=== PATIENT | male | born 2000 ===

== ENCOUNTER 2018-03-10 14:49 | Emergency (ER) | payer OTHER ==
[2018-03-10] MEDS ORDERED: Ondansetron ODT 4 MG TAB ONE (16:47)
[2018-03-10] MEDS ORDERED: Ibuprofen 200 MG TAB ONE (16:47)
--- NOTE | 2018-03-10 17:14 | CT ---
CT OF THE BRAIN WITHOUT CONTRAST: 03/10/18 COMPARISON: None. HISTORY: Fell off a skateboard and hit left side of head on the pavement. Head trauma. TECHNIQUE: Multiple contiguous axial images were obtained in a CT of the brain without contrast. FINDINGS: The brain is normal in morphology and attenuation without focal lesions or confluent areas of infarct ion. There is no evidence of hydrocephalus, intracranial hemorrhage or extra-axial fluid collection. The calvarium and overlying soft tissues are unremarkable. The visualized paranasal sinuses and masto id air cells are well aerated. IMPRESSION: No evidence of acute intracranial abnormality. POS: [facility]
== END 2018-03-10 17:35 | disposition home or self-care (01) ==
LOC: ERS 14:49
DX: S06.0X0A Concussion without loss of consciousness, initial encounter (principal); S00.81XA Abrasion of other part of head, initial encounter; G44.309 Post-traumatic headache, unspecified, not intractable; F17.210 Nicotine dependence, cigarettes, uncomplicated; V00.131A Fall from skateboard, initial encounter
CPT/HCPCS: 70450; Q0162